=== PATIENT | female | born 1985 ===

== ENCOUNTER 2017-11-02 11:30 | Emergency (ER) | payer OTHER ==
[2017-11-02 11:56] VITALS: BP 143/84; PULSE 113; RESP 18; TEMP 99; O2SAT 100
--- NOTE | 2017-11-02 12:21 | ED PDOC ---
HPI: CCC, URI, Sore Throat Time Seen by Provider: 11/02/17 11:58 Chief Complaint (Nursing): Flu-like Symptoms Chief Complaint (Provider): Flu-like Symptoms History Per: Patient History/Exam Limitations: no limitations Onset/Duration Of Symptoms: Days (x2) Current Symptoms Are (Timing): Still Present Additional Complaint(s): 32 year old female, currently 16 weeks , who presents to the emergency department with a complaint of flu-like symptoms including subjective fever, runny nose, sore throat, headache and cough ongoing for 2 days. Denied any abdominal pain, nausea, diarrhea, vomiting or vaginal bleeding. Patient stated that she took Tylenol for pain relief. PMD: none provided Past Medical History Reviewed: Historical Data, Nursing Documentation, Vital Signs Vital Signs: Last Vital Signs Temp 99 F 11/02/17 11:51 Pulse 113 H 11/02/17 11:51 Resp 18 11/02/17 11:51 BP 143/84 11/02/17 11:51 Pulse Ox 100 11/02/17 18:44 - Medical History PMH: No Chronic Diseases - Surgical History Surgical History: No Surg Hx - Family History Family History: States: Unknown Family Hx - Social History Current smoker - smoking cessation education provided: No Alcohol: None Drugs: Denies - Home Medications Home Medications: Ambulatory Orders Medication Instructions Recorded Oseltamivir Phosphate [Tamiflu] 75 mg PO BID #9 capsule 11/02/17 - Allergies Allergies/Adverse Reactions: Allergies Allergy/AdvReac Type Severity Reaction Status Date / Time No Known Allergies Allergy Verified 11/02/17 11:52 Review of Systems ROS Statement: Except As Marked, All Systems Reviewed And Found Negative Constitutional: Positive for: Fever (subjective) ENT: Positive for: Nose Discharge, Throat Pain Respiratory: Positive for: Cough Gastrointestinal: Negative for: Nausea, Vomiting, Abdominal Pain, Diarrhea Genitourinary Female: Negative for: Vaginal Bleeding Neurological: Positive for: Headache Physical Exam - Reviewed Nursing Documentation Reviewed: Yes Vital Signs Reviewed: Yes - Physical Exam Appears: Positive for: Well, Non-toxic, No Acute Distress Head Exam: Positive for: ATRAUMATIC, NORMAL INSPECTION, NORMOCEPHALIC Skin: Positive for: Normal Color Eye Exam: Positive for: Normal appearance ENT: Positive for: Normal ENT Inspection, Pharynx Is (within normal limits). Negative for: Pharyngeal Erythema Neck: Positive for: Normal, Painless ROM Cardiovascular/Chest: Positive for: Regular Rate, Rhythm, Chest Non Tender Respiratory: Positive for: Normal Breath Sounds. Negative for: Decreased Breath Sounds, Wheezing, Respiratory Distress Gastrointestinal/Abdominal: Positive for: Normal Exam, Bowel Sounds, Soft, Other (gravid uterus). Negative for: Tenderness Neurologic/Psych: Positive for: Alert (x3), Oriented - ECG O2 Sat by Pulse Oximetry: 100 (RA) Pulse Ox Interpretation: Normal Medical Decision Making Medical Decision Making: Initial Impression: Flu-like Symptoms Differential Diagnosis: Viral illness vs. URI vs. bronchitis vs. pneumonia Initial Plan: * CXR * Influnza A B * Rapid strep Time: 1219 --Provider explained to patient the benefits of a CXR. Also, informed patient of risks including potential exposure of radiation to fetus. Declined CXR. Time: 14:15 - Tamiflu Cap Scribe Attestation: Documented by Lisa Wick, acting as a scribe for Lesly Hylton MD. Provider Scribe Attestation: All medical record entries made by the Scribe were at my direction and personally dictated by me. I have reviewed the chart and agree that the record accurately reflects my personal performance of the history, physical exam, medical decision making, and the department course for this patient. I have also personally directed, reviewed, and agree with the discharge instructions and disposition. Scribe Attestation: Documented by Aldo Westfall, acting as a scribe for Lesly Hylton MD Provider Scribe Attestation: All medical record entries made by the Scribe were at my direction and personally dictated by me. I have reviewed the chart and agree that the record accurately reflects my personal performance of the history, physical exam, medical decision making, and the department course for this patient. I have also personally directed, reviewed, and agree with the discharge instructions and disposition. Disposition - Clinical Impression Clinical Impression: Influenza A - Disposition Disposition: Routine/Home Disposition Time: 14:15 Condition: STABLE Additional Instructions: SEGUIMIENTO CON OB-PASSENGER TIRE INSPECTOR DENTRO DE 2 BAIG PARA LA REEVALUACIN. Prescriptions: Oseltamivir Phosphate [Tamiflu] 75 mg PO BID #9 capsule Instructions: Oseltamivir (By mouth), Influenza (ED) Forms: [employer] ([place]ym[place]es), [facility] ED School/Work Excuse Print Language: INDIAN
== END 2017-11-02 14:46 | disposition home or self-care (01) ==
LOC: H.ER 11:30
DX: J10.1 Influenza due to other identified influenza virus with other respiratory manifestations (principal); O99.512 Diseases of the respiratory system complicating pregnancy, second trimester; O26.892 Other specified pregnancy related conditions, second trimester; Z3A.16 16 weeks gestation of pregnancy

== ENCOUNTER 2017-11-16 13:04 | Emergency (ER) | payer OTHER ==
--- NOTE | 2017-11-16 18:04 | ED PDOC ---
HPI: Female Pain Time Seen by Provider: 11/16/17 15:08 Chief Complaint (Nursing): Female Genitourinary Additional Complaint(s): Pt @ 17 weeks gestation presents to ED for ultrasound. Pt states she was dx with influenza last week, finished course of Tamiflu, now would like to "check on baby", decreased movement intermittently. Denies fever, nausea, vomiting, abdominal pain, vaginal discharge, vaginal bleeding. No care. Abnormal Vaginal Bleeding: No Past Medical History Reviewed: Nursing Documentation, Vital Signs Vital Signs: Last Vital Signs Temp 98.7 F 11/16/17 13:59 Pulse 104 H 11/16/17 13:59 Resp 20 11/16/17 13:59 BP 115/68 11/16/17 13:59 Pulse Ox 99 11/16/17 13:59 - Medical History PMH: No Chronic Diseases - Surgical History Surgical History: No Surg Hx - Family History Family History: States: Unknown Family Hx - Social History Current smoker - smoking cessation education provided: No Alcohol: None - Home Medications Home Medications: Ambulatory Orders Medication Instructions Recorded Oseltamivir Phosphate [Tamiflu] 75 mg PO BID #9 capsule 11/02/17 - Allergies Allergies/Adverse Reactions: Allergies Allergy/AdvReac Type Severity Reaction Status Date / Time No Known Allergies Allergy Verified 11/16/17 13:44 Review of Systems Constitutional: Negative for: Fever, Chills Cardiovascular: Negative for: Chest Pain, Palpitations Respiratory: Negative for: Cough, Shortness of Breath Gastrointestinal: Negative for: Nausea, Vomiting, Abdominal Pain, Diarrhea Genitourinary Female: Negative for: Dysuria, Hematuria, Vaginal Discharge, Vaginal Bleeding Skin: Negative for: Rash, Lesions Neurological: Negative for: Headache Physical Exam - Reviewed Nursing Documentation Reviewed: Yes Vital Signs Reviewed: Yes - Physical Exam Appears: Positive for: Well, No Acute Distress Skin: Positive for: Normal Color, Warm, Dry Eye Exam: Positive for: Normal appearance, EOMI, PERRL Cardiovascular/Chest: Positive for: Regular Rate, Rhythm Respiratory: Positive for: Normal Breath Sounds Gastrointestinal/Abdominal: Positive for: Bowel Sounds, Soft (Gravid). Negative for: Tenderness Extremity: Positive for: Normal ROM Neurologic/Psych: Positive for: Alert, Oriented - ECG O2 Sat by Pulse Oximetry: 99 Medical Decision Making Medical Decision Makin yo @ 17 weeks presents for ultrasound. - UA - pelvic ultrasound 19:15 Patient to be signed out to Dr. Kramer pending urinalysis. Disposition - Clinical Impression Clinical Impression: Female genitourinary symptoms - Patient ED Disposition Is Patient to be Admitted: Transfer of Care Discussed With : Varinder Kramer Doctor Will See Patient In The: ED - Disposition Disposition: Transfer of Care Disposition Time: 19:15 Condition: FAIR Forms: Vastari (Malay) Patient Signed Over To: Varinder Kramer
--- NOTE | 2017-11-16 19:21 | ED PDOC ---
- ECG O2 Sat by Pulse Oximetry: 99 (RA) Pulse Ox Interpretation: Normal Medical Decision Making Medical Decision Makin:15 Patient signed over to the provider by Dr. Hylton pending urinalysis. Reassess --19:53 ED Urine Dip 20:06 EXAM: US Uterus, Limited CLINICAL HISTORY: 32 years old, female; Signs and symptoms; Lmp or gestational age (in weeks): ; Other: Decrease movement ? ; ; Additional info: Decreased movement TECHNIQUE: Real-time ultrasound of the maternal uterus (limited) with image documentation. COMPARISON: No relevant prior studies available. FINDINGS: There is an intrauterine in vertex presentation. heart rate is 144 bpm. movement is seen. The placenta is anterior without evidence of placenta previa. The amniotic fluid is normal in volume. measurements BPD 5.5 cm 22 weeks 6 days HC 19.1 cm 21 weeks 3 days A.C. 14.8 cm 20 weeks 1 day FL 3.8 cm 22 weeks 3 days. EFW 409.57 g plus or minus 61.4 g Ultrasound gestational age 21 weeks 5 days FREDDIE 03/24/2018 Clinical GA 20 weeks 6 days FREDDIE 03/30/2018 The cervix measures 4.3 cm. The cervical os is closed. IMPRESSION: 1. Single living intrauterine . 2. Gestational age 21 weeks 5 days FREDDIE 03/24/2018. 3. Cervix measures 4.3 cm. The cervical os is closed. 4. The ovaries are not visualized. 5. movement is documented --20:12 patient to be discharged home and is instructed to follow up with the [facility]. Scribe Attestation: Documented by Nahid Shelton acting as a scribe for Varinder Kramer MD. Provider Attestation: All medical record entries made by the Scribe were at my direction and personally dictated by me. I have reviewed the chart and agree that the record accurately reflects my personal performance of the history, physical exam, medical decision making, and the department course for this patient. I have also personally directed, reviewed, and agree with the discharge instructions and disposition. Disposition - Clinical Impression Clinical Impression: Female genitourinary symptoms, - POA Present On Arrival: None - Disposition Referrals: [facility] [Outside] Disposition: Routine/Home Disposition Time: 20:12 Condition: IMPROVED Additional Instructions: Please followup with your OB-FRUCTOSE LOADER. Instructions: (ED), at 19 to 22 Weeks (ED) Forms: [employer] (Estonian) Print Language: LIBERIAN
[2017-11-16 19:51] VITALS: BP 102/70; PULSE 78; RESP 16; TEMP 98.4
[2017-11-16 20:19] VITALS: O2SAT 99
--- NOTE | 2017-11-17 15:57 | US ---
OB , limited Indication: Decreased movement Comparison: None available. Technique: Real-time ultrasound was performed through the pelvis. Findings: There is a single living fetus in cephalic presentation. Anterior placenta. The placenta is not previa. The ovaries are not visualized. There are no adnexal masses or cysts evident. Cervix length measures approximately 4.2 cm and appears closed. Measurements and calculations: Fetus has a composite sonographic age of 21 weeks, 5 days. This calculation is based on the biparietal diameter, head circumference, abdominal circumference, and femur length. Estimated heart rate 144.35 beats per min. Estimated weight: 409.6 g. Impression: Single living fetus with a composite sonographic age of 21 weeks 5 days. Estimated heart rate 144.35 beats per min. Preliminary impression was provided by virtual radiologic.
== END 2017-11-16 20:40 | disposition home or self-care (01) ==
LOC: H.ER 13:04
DX: Z3A.21 21 weeks gestation of pregnancy (principal); Z36.9 Encounter for antenatal screening, unspecified

== ENCOUNTER 2018-03-20 08:44 | Inpatient (IN) | payer MEDICAID, SELFPAY ==
[2018-03-20 10:21] LABS: BASO # 0.1 K/uL (0.0-0.2); BASO % 0.8 % (0.0-2.0); EOS # 0.1 K/uL (0.0-0.7); EOS % 0.9 % (0.0-4.0); HEMOGLOBIN 12.6 g/dL (12.0-16.0); LYMPH # 2.6 K/uL (1.0-4.3); MEAN CORPUSCULAR HEMOGLOBIN 29.6 pg (27.0-31.0); MEAN CORPUSCULAR HGB CONC 34.5 g/dL (33.0-37.0); MEAN PLATELET VOLUME 9.9 fl (7.2-11.7); MONO # 0.6 K/uL (0.0-0.8); MONO % 5.4 % (0.0-10.0); NEUT # 7.9 K/uL (1.8-7.0); NEUT % 69.9 % (50.0-75.0); NRBC % 0.1 % (0.0-0.0); RBC 4.26 Mil/uL (3.80-5.20); RED CELL DISTRIBUTION WIDTH 13.5 % (11.5-14.5); WHITE BLOOD COUNT 11.2 K/uL (4.8-10.8)
[2018-03-20 10:26] LABS: MEAN CELL VOLUME 85.8 fl (81.0-99.0)
[2018-03-20] MEDS ORDERED: Oxytocin 30 units/LR 500ML 30 U/500 ML BAG IV ONE (10:35)
[2018-03-20 10:44] VITALS: BMI 28.6
[2018-03-20 10:44] LABS: ALBUMIN 3.7 g/dL (3.5-5.0); ALT/SGPT 12 U/L (9-52); AST/SGOT 24 U/L (14-36); BILIRUBIN,DIRECT 0.1 mg/ml (0.0-0.4); BLOOD UREA NITROGEN 13 mg/dl (7-17); GFR AFRICAN-AMERICAN > 60; GFR NON-AFRICAN AMERICAN > 60
[2018-03-20] MEDS ORDERED: Lactated Ringer's 1,000 ML IV SCH (10:45)
[2018-03-20 12:29] VITALS: TEMP 98.3; O2SAT 100
[2018-03-20] MEDS: Lactated Ringer's 1,000 ML IV SCH (12:30)
[2018-03-20 12:36] LABS: SQUAMOUS EPITHIAL 3 /hpf (0-5); URINE BACTERIA RARE (<OCC); URINE BILIRUBIN NEGATIVE (NEGATIVE); URINE BLOOD MODERATE (NEGATIVE); URINE CLARITY SLIGHTY-CLOUDY (Clear); URINE GLUCOSE (UA) NEG (Normal); URINE LEUKOCYTE ESTERASE NEG Leu/uL (Negative); URINE PROTEIN NEGATIVE (NEGATIVE); URINE UROBILINOGEN 0.2-1.0 mg/dL (0.2-1.0)
[2018-03-20 13:20] LABS: URINE COLOR YELLOW (YELLOW)
[2018-03-20] MEDS ORDERED: Lidocaine 2% Inj (20ml) ONE (13:21)
[2018-03-20] MEDS ORDERED: Oxycodone/Acetaminophen 5/325 mg Tab PO PRN ×4 (14:43→17:39)
[2018-03-20] MEDS ORDERED: Benzocaine/Menthol SPRAY TOP PRN ×2 (14:43→17:39)
--- NOTE | 2018-03-20 15:36 | OBDS ---
DELIVERY PERSONNEL Delivery Doctor: Mony Calabrese MD Electrical Troubleshooter: Krista Hernandes RN Resident: Dawn HORN / MD Agusto MATERNAL INFORMATION Delivery Anesthesia: Local Medications in Delivery: Pitocin Estimated Blood Loss (ml): 200 Placenta Cultured: No Maternal Complications: None RN Comments: Atraumatic of a viable baby girl with Lusty Cry Skin to skin initiated. APGARS 9/ 9 assigned. Mother and infant recoverying well. Provider Comments: of viable female infant form cephalic presentation over perineum 2 nd degree e laceration. NO nuchal cord was noted. Infant was bulb suctioned at the perineum and was crying spon taneously. cord was doubled clamped and cut. placenta was deliverd intact spontaneosuly and three ves sels cords was noted. pitocin 20 u were given. 2nd degreeeperineal lac reparied. EBL 200 The patient was seen with the resident I was present for the delivery and I agree with the note LABOR SUMMARY EDC: 03/24/2018 00:00 No. Babies in Womb: 1 Attempted: No Labor Anesthesia: None LABOR INFORMATION Reason for Induction: Not Applicable Onset of Labor: 03/20/2018 07:00 Complete Dilatation: 03/20/2018 13:00 Oxytocin: N/A Group B Beta Strep: Negative Antibiotics # of Doses: 0 Steroids Given: None Reason Steroids Not Administered: Not Applicable Other Reason Not Administered: Not required MEMBRANES Membranes Rupture Method: Artificial Rupture of Membranes: 03/20/2018 11:25 Length of Rupture (hrs): 2.18 Amniotic Fluid Color: Clear Amniotic Fluid Amount: Scant Amniotic Fluid Odor: Normal STAGES OF LABOR Stage 1 hrs: 6 Stage 1 min: 0 Stage 2 hrs: 0 Stage 2 min: 36 Stage 3 hrs: 0 Stage 3 min: 5 Total Time in Labor hrs: 6 Total Time in Labor min: 41 VAGINAL DELIVERY Episiotomy: None Laceration Extension: Second Degree Laceration Type: Perineal Laceration Repair: Yes Laceration Repair Note: 2nd degreee perineal repaired with Vicryl 2.0. lidocaine 1%, 2ml used. procedured tolerated w/o complication. Initial Vag Sponge Count: 5 Final Vag Sponge Count: 5 Initial Vag Sharps Count: 2 Final Vag Sharps Count: 2 Sponge Count Correct: Yes Sharps Count Correct: Yes BABY A INFORMATION Delivery Date/Time: 03/20/2018 13:36 Method of Delivery: Vaginal Born in Route : No : N/A Forceps: N/A Vacuum Extraction: N/A Shoulder Dystocia : No SHOULDER DYSTOCIA BABY A Delivery Date/Time: 03/20/2018 13:36 PRESENTATION/POSITION BABY A Presentation: Cephalic Cephalic Presentation: Vertex Vertex Position: Left Occipital Anterior Breech Presentation: N/A PLACENTA INFORMATION BABY A Placenta Delivery Time : 03/20/2018 13:41 Placenta Method of Delivery: Spontaneous Placenta Status: Delivered SCORES BABY A Heart Rate 1 min: >100 bpm Resp Effort 1 min: Good Cry Reflex Irritability 1 min: Cough or Sneeze or Pulls Away Muscle Tone 1 min: Active Motion Color 1 min: Body [place]ed[place], Extremities Blue Resuscitation Effort 1 min: N/A SCORE 1 MIN: 9 Heart Rate 5 min: >100 bpm Resp Effort 5 min: Good Cry Reflex Irritability 5 min: Cough or Sneeze or Pulls Away Muscle Tone 5 min: Active Motion Color 5 min: Body [place]ed[place], Extremities Blue Resuscitation Effort 5 min: N/A SCORE 5 MIN: 9 INFORMATION BABY A Gestational Age at Delivery: 39.0 Gestational Status: Term Infant Outcome : Liveborn Infant Condition : Stable Sex: Female IDENTIFICATION/MEDS BABY A ID Band Number: [id number] ID Band Location: Right Leg; Right Arm WEIGHT/LENGTH BABY A Infant Birthweight (gms): 3060 Infant Weight (lb): 6 Weight (oz): 12 CORD INFORMATION BABY A No. Cord Vessels: 3 Nuchal Cord : N/A Cord Blood Taken: No Infant Suction: Mouth; Nose ASSESSMENT BABY A Infant Complications: None Physical Findings at Delivery: Within Normal Limits Infant Respirations: Appears Normal Vp Packaging/ALS Called : No Care By: Wanda Hernandes Transferred To: Remains with Mother
[2018-03-21 06:20] LABS: BASO % 0.2 % (0.0-2.0); EOS # 0.1 K/uL (0.0-0.7); EOS % 0.7 % (0.0-4.0); HEMOGLOBIN 10.8 g/dL (12.0-16.0); LYMPH # 3.9 K/uL (1.0-4.3); LYMPH % 23.5 % (20.0-40.0); MEAN CELL VOLUME 87.2 fl (81.0-99.0); MEAN CORPUSCULAR HEMOGLOBIN 28.8 pg (27.0-31.0); MEAN CORPUSCULAR HGB CONC 33.1 g/dL (33.0-37.0); MEAN PLATELET VOLUME 9.3 fl (7.2-11.7); MONO # 0.9 K/uL (0.0-0.8); MONO % 5.6 % (0.0-10.0); NEUT # 11.7 K/uL (1.8-7.0); RBC 3.76 Mil/uL (3.80-5.20); RED CELL DISTRIBUTION WIDTH 13.8 % (11.5-14.5); WHITE BLOOD COUNT 16.7 K/uL (4.8-10.8)
--- NOTE | 2018-03-21 13:07 | OBPPN ---
Datetime: 03/21/2018 08:45 PP Pain Prov: Within normal limits PP Nausea Prov: Denies PP Flatus Prov: Yes PP BM Prov: No PP Breasts Prov: Normal PP Heart Prov: Normal PP Lungs Prov: Normal PP Abdomen/Uterus Prov: Normal PP Lochia Prov: Normal PP Vulva/Perineum Prov: Normal PP CVA Tenderness Prov: Normal PP Extremities Prov: Normal PP C/S Incision Prov: Not Applicable PP Progress Prov: Normal PP Impression Prov: Normal progression PP Progress Note Prov: S: 32 yo s/p NVD on 03/20/2018 at 13:36. Pt. is seen and examined at bedside this AM. No significant overnight events. Pt reports occasional abdominal pain, but well con trolled with pain meds. Pt is ambulating without any difficulties. Breast feeding baby. Tolerating PO diet. Lochia is similar to light menses in volume. Voiding freely, no bowel movement, but passing ga s per rectum. Denies fever, chills, diarrhea, nausea, vomiting, chest pain, dyspnea, and dizziness. O: VS: stable GEN: NAD Cardio: S1S2, no M/G/R Resp: clear breath sounds b/l Abdomen: BS+, NT, Uterus is firm and at the level of the umbilicus. EXT: No edema, calves nontender NEURO/PSYCHI: AAOx3, no grossly focal deficit, preserved affect and mood. Assessment/Plan: 32 yo s/p NVD on 03/20/2018 at 13:36. Pt remains afebrile, tolerating pa in with medication, tolerating PO intake, doing well on PPD1. OOB with caution SCDs for DVT prophylaxis, pt ambulating Ibuprofen 600mg for pain. Colace 100mg PO BID/Senokot 17.2 mg qHS for constipation Encourage and ambulating CBC post-delivery: H/H 10.8/32.8 Anticipated d/c to home, 03/22/2018. Case dw OB attending Nicolás Ford PGY-3 Patient seen and examined by me this am. Agree with above note. --Dr. Gross Vital Signs Provider PP: Reviewed; Within Normal Limits
[2018-03-22] MEDS ORDERED: Lansinoh for Breast Feeding Mothers TP ONE (09:22)
--- NOTE | 2018-03-22 10:02 | OBDCSUM ---
Datetime: 03/22/2018 07:20 Discharged to, Provider: Home Follow up at, Provider: Dr. Seymour Disch Instr Activity: Normal activity Disch Instr Diet: Regular Discharge Instructions, Provider: Routine instructions given Discharge Diagnosis, Provider: Term Delivered Discharge Time: 03/22/2018 10:00 Follow up in weeks, Provider: 6 wks PP Disch Referrals: None Contraception discussed, Prov: Yes Disch Activity Restrictions: No lifting; Nothing in vagina - [place], tampons, douche Discharge Comment, Provider: Discharge Summary DOA: 03/20/2018 EGA: 39.6 Diagnosis: NVD Term Risk factors: hx preeclampsia in previous delivery 2010 Summary of : 32 yo F L_D summary DOL: 03/20/2018 at 13:36 NVD NB: F : 9/9 Weight: 3060 g PP summary No serious complications during PP. Lochia= menses, mild pain, controlled with medications Rubella immune, Tdap 01/22/18 Blood type: O+ CBC pp: 10.8/32.8 Discharge Date: 03/22/2018 Time 10:00 AM Discharge Instructions: -encourage -Ibuprofen for pain PRN -Ambulate as tolerated -f/u NB visit 3-7 days w/ responder and PP visit 6 weeks with OB Case d/w OB attending --- Shahab Paz MD PGY-1 Contraception after Delivery: Foam/Condoms
--- NOTE | 2018-03-22 10:02 | OBPPN ---
Datetime: 03/22/2018 07:20 PP Pain Prov: Within normal limits PP Nausea Prov: Denies PP Flatus Prov: Yes PP BM Prov: Yes PP Breasts Prov: Not Done PP Heart Prov: Normal PP Lungs Prov: Normal PP Abdomen/Uterus Prov: Normal PP Lochia Prov: Normal PP Vulva/Perineum Prov: Not Done PP CVA Tenderness Prov: Normal PP Extremities Prov: Normal PP C/S Incision Prov: Not Applicable PP Progress Prov: Normal PP Impression Prov: Normal progression PP Plan Prov: Discharge PP Progress Note Prov: PPD 2 S: 32 yo s/p NVD on 03/20/2018 at 13:36. Pt. is seen and examined at bedside this AM. No significant overnight events. Pt reports occasional abdominal pain, but well controlled with pain med s. Pt is ambulating without any difficulties. Breast feeding baby. Tolerating PO diet. Lochia is avis lar to light menses in volume. Voiding freely, with bowel movement and passing gas per rectum. Denies fever, chills, diarrhea, nausea, vomiting, chest pain, dyspnea, and dizziness. O: VS: stable GEN: NAD Cardio: S1S2, no M/G/R Resp: clear breath sounds b/l Abdomen: BS+, NT, Uterus is firm and at the level of the umbilicus. EXT: No edema, calves nontender NEURO/PSYCHI: AAOx3, no grossly focal deficit, preserved affect and mood. Assessment/Plan: 32 yo s/p NVD on 03/20/2018 at 13:36. Pt remains afebrile, tolerating kary n with medication, tolerating PO intake, doing well on PPD 2. OOB with caution SCDs for DVT prophylaxis, pt ambulating Ibuprofen 600mg for pain. Colace 100mg PO BID/Senokot 17.2 mg qHS for constipation Encourage and ambulating CBC post-delivery: H/H 10.8/32.8 Anticipated d/c to home, 03/22/2018. Case dw OB attending --- Shahab Paz MD PGY-[address] Byrd: I have evaluated the patient independently and I agree with the above IP PP Procedures: None Vital Signs Provider PP: Reviewed; Within Normal Limits
[2018-03-22 18:26] VITALS: BP 110/71; PULSE 86; RESP 20
== END 2018-03-22 14:16 | disposition home or self-care (01) | DRG 775 ==
LOC: H.EROB2 08:44 → H.L&D 09:12 → H.EROB2 10:49 → H.OB/GYN 17:02
PROVIDERS: ADMIT Obstetrics & Gynecology Gynecology; ATTEND Obstetrics & Gynecology Gynecology
PROC: 10E0XZZ Delivery of Products of Conception, External Approach (ICD-10-PCS; principal; 2018-03-20)
PROC: 0KQM0ZZ Repair Perineum Muscle, Open Approach (ICD-10-PCS; 2018-03-20)
PROC: 10907ZC Drainage of Amniotic Fluid, Therapeutic from Products of Conception, Via Natural or Artificial Opening (ICD-10-PCS; 2018-03-20)
PROC: 4A1HXCZ Monitoring of Products of Conception, Cardiac Rate, External Approach (ICD-10-PCS; 2018-03-20)
DX: O70.1 Second degree perineal laceration during delivery (principal); Z37.0 Single live birth; K59.00 Constipation, unspecified; Z3A.39 39 weeks gestation of pregnancy